=== PATIENT | male | born 1965 | race Caucasian/White ===

== ENCOUNTER 2024-09-13 12:30 | Emergency (ER) | payer BC, SELFPAY ==
[2024-09-13 12:33] VITALS: BP 173/78; PULSE 65; RESP 19; TEMP 37.4; O2SAT 98; BMI 30.2
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
--- NOTE | 2024-09-13 13:21 | PC.NURSE ---
rounded on pt, no needs at this time. call light within reach
--- OUTSIDE RECORDS SUMMARY | 2024-09-13 13:33 | XMS_ITS | Data Portability ---
Author Organization [facility] Address [address] [place] [address] Care Team Providers Care Heel Trimmer Name Role Phone JASMINA DOS SANTOS Primary Care Provider [phone] MATEUSZ PITTMAN Consumer Insights Specialist DEX DUARTE Education Sales Consultant Assessment Encounter Date Assessment Date Assessment LastModified by Organization Details LastModified Time 04/09/2023 04/09/2023 Mr. Zimmerman is a very pleasant, 57 y.o. patient who has a history of HTN, Hyperlipidemia, chews tobacco, and has Family Hx of prostate cancer is being seen today at the request of Dr. Jasmina Dos Santos ( Internal Medicine) for an evaluation of HTN. Symptomatically, the patient reports elevated BP per home BP cuff. BPs have been 160-190s/80s. Recently, he had experienced cold and taken Nyquil & Dayquil. The patient denies chest pain, SOA, RAMIREZ, PND, orthopnea, LE edema, palpitations, near syncope, and syncope. Overall health is reported as stable. Recently, he has RTC: 4-6 weeks for BP review & to discuss study results CV Study: Echocardiogram Call in with BP results & BP cuff validity (when known) Not available 04/10/2023 18:29:08 06/03/2023 06/03/2023 Mr. Zimmerman is a very pleasant, 58 y.o. patient who has a history of HTN, Hyperlipidemia, chews tobacco, and has Family Hx of prostate cancer who was last seen on 04/09/23 at the request of Dr. Jasmina Dos Santos ( Internal Medicine) for an evaluation of HTN. To review: Symptomatically, the patient reported elevated BP per home BP cuff. BPs have been 160-190s/80s. Recently, he had experienced cold and taken Nyquil & Dayquil. Since being off the OTC meds., his BP at home has been well controlled. The patient denied chest pain, SOA, RAMIREZ, PND, orthopnea, LE edema, palpitations, near syncope, and syncope. Overall health is reported as stable. Patient returns to the clinic today for a scheduled follow-up visit. RTC: FREDY Not available 06/04/2023 08:34:39 01/25/2024 01/25/2024 advised he is du e for labs, he agreed to get labs today and I recommend a 6 motnh recheck of chronic conditions sunshine Not available 01/25/2024 19:18:28 Plan of Treatment Reminders Order Date Submit Date Provider Last Modified By Organization Details Last Modified Time Details Appointments PHYSICAL EXAM 2024 08:00A M JASMINA DOS SANTOS MD Not available Not available Not available FOLLOW UP DAK 2024 08:10A M DEX DUARTE MD Not available Not available Not available Lab lipid panel, serum 2023 [facility], [address] [place] [address], [id number], 01/25/2024 17:38:33 CMP, serum or plasma 2023 [facility], [address] [place] [address], [id number], 01/25/2024 17:38:35 PSA, total, serum or plasma 2023 [facility], [address] [place] [address], [id number], 01/25/2024 17:41:02 CBC w/ auto diff 2023 [facility], [address] [place] [address], [id number], 01/25/2024 17:52:53 glycohemo globin, total, blood 2023 024 [facility], [address] [place] [address], [address], 01/25/2024 17:18:57 TSH, serum, reflex free T4 2023 024 [facility], [address] [place] [address], [id number], 01/25/2024 17:41:00 Referral None recorded. Procedures None recorded. Surgeries None recorded. Imaging None recorded. Medication Orders atorvasta tin 10 mg tablet 2023 024 [facility][id number], [address] [place], [place], [id number], 01/25/2024 19:15:47 amlodipin e 5 mg tablet 2023 024 [facility] #[id number], [address] [place], [place], [id number], 01/25/2024 19:14:06 atorvasta tin 10 mg tablet 2023 024 [facility] #[id number], [address] [place], [place], [id number], 03/27/2023 11:20:06 amlodipin e 5 mg tablet [address] [facility][id number], [address] [place], [place], [id number], 03/27/2023 11:34:19 Patient TargetsNo targets recorded. Patient Instructions Encounter Date Encounter Id Patient Instructions Last Modified By Organization Details Last Modified Time 04/09/2023 [id number] Quitting Tobacco : Care Instructions Not available 04/10/2023 18:29:09 body mass index: care instructions Not available 04/10/2023 18:29:09 high blood pressure: care instructions Not available 04/10/2023 18:29:09 06/03/2023 [id number] Quitting Tobacco : Care Instructions Not available 06/03/2023 15:02:22 body mass index: care instructions Not available 06/03/2023 15:02:23 high blood pressure: care instructions Not available 06/03/2023 15:02:22 01/25/2024 [id number] Body Mass Index: Care Instructions-LUIS E gonsalez Not available 01/25/2024 15:46:48 Reason for Referral None Reported. Results Created Date Observation Date Name Description Value Unit Range Abnormal Flag Note LastModifiedBy Organization Detail LastModifiedTime 01/25/20 24 01/25/2024 GLYCO HEMOG LOBIN A1C glyco HGB A1C 5.3 % 0.0-5. 6 normal Not Available [facility] [address] [place] [address], [id number], 01/25/2024 17:18:57 01/25/20 24 01/25/2024 GLYCO HEMOG LOBIN A1C estimated avg. glucose 105 mg/dL _(meghan c) normal A1c value s betwe en 5.7% to 6.4% indic ate predi abete s. Resul ts 6.5% or great er is diagn ostic of diabe stuart. Ameri can Diabe stuart [facility] iatio n (diab etes. org) Not Available [facility] [address] [place], [address], 01/25/2024 17:18:57 01/25/2001/25/2024 LIPID PROFI LE HDL cholesterol 66 mg/dL 40-242 normal Not Available [facility] [address] [place], [address], 01/25/2024 17:38:33 01/25/20 24 01/25/2024 LIPID PROFI LE triglyceride s 207 mg/dL 0-149 high TRIGL YCERI DE RANGE S ARIELA L: < 150 BORDE RLINE HIGH: 150 - 199 HIGH: 200 - 499 VERY HIGH: > OR = 500 Not Available [facility] [address] [place] [address], [address], 01/25/2024 17:38:33 01/25/20 24 01/25/2024 LIPID PROFI LE cholesterol 220 mg/dL 0-199 high DIAN STERO L (TOTA L) RANGE S ISATU ABLE: < 200 BORDE RLINE : 200 - 239 HIGHE R RISK: > 239 Not Available [facility] [address] [place] [address], [address], 01/25/2024 17:38:33 01/25/20 24 01/25/2024 LIPID PROFI LE LDL cholesterol 113 mg/dL _(meghan c) 0-99 high LDL DIAN STERO L RANGE S OPTIM AL: < 100 NEAR/ ABOVE OPTIM AL: 100 - 129 BORDE RLINE HIGH: 130 - 159 HIGH: 160 - 189 VERY HIGH: > OR = 190 Not Available [facility] [address] [place] [address], [address], 01/25/2024 17:38:33 01/25/20 24 01/25/2024 COMP. METAB OLIC PANEL glucose 87 mg/dL 74-100 normal Not Available [facility] [address] [place] [address], [address], 01/25/2024 17:38:35 01/25/20 24 01/25/2024 COMP. METAB OLIC PANEL blood urea nitrogen 13 mg/dL 6-20 normal Not Available [facility] [address] [place] [address], [address], 01/25/2024 17:38:35 01/25/20 24 01/25/2024 COMP. METAB OLIC PANEL creatinine 1.12 mg/dL 0.70-1 .28 normal Not Available [facility] [address] [place] [address], [address], 01/25/2024 17:38:35 01/25/20 24 01/25/2024 COMP. METAB OLIC PANEL BUN/creatini ne ratio 12 (calc ) 10-20 normal Not Available [facility] [address] [place] [address], [address], 01/25/2024 17:38:35 01/25/20 24 01/25/2024 COMP. METAB OLIC PANEL sodium 142 mmol/ L 136-14 5 normal Not Available [facility] [address] [place] [address], [address], 01/25/2024 17:38:35 01/25/20 24 01/25/2024 COMP. METAB OLIC PANEL potassium 4.0 mmol/ L 3.4-5. 0 normal Not Available [facility] [address] [place] [address], [address], 01/25/2024 17:38:35 01/25/20 24 01/25/2024 COMP. METAB OLIC PANEL chloride 102 mmol/ L 98-107 normal Not Available [facility] [address] [place] [address], [address], 01/25/2024 17:38:35 01/25/20 24 01/25/2024 COMP. METAB OLIC PANEL carbon dioxide 25 mmol/ L 22-31 normal Not Available [facility] [address] [place] [address], [address], 01/25/2024 17:38:35 01/25/20 24 01/25/2024 COMP. METAB OLIC PANEL anion gap 15 (calc ) 7-25 normal Not Available [facility] [address] [place] [address], [address], 01/25/2024 17:38:35 01/25/20 24 01/25/2024 COMP. METAB OLIC PANEL calcium 9.6 mg/dL 8.6-10 .2 normal Not Available [facility] [address] [place] [address], [address], 01/25/2024 17:38:35 01/25/20 24 01/25/2024 COMP. METAB OLIC PANEL total protein 7.7 g/dL 6.4-8. 3 normal Not Available [facility] [address] [place] [address], [address], 01/25/2024 17:38:35 01/25/20 24 01/25/2024 COMP. METAB OLIC PANEL albumin 4.7 g/dL 3.5-5. 2 normal Not Available [facility] [address] [place] [address], [address], 01/25/2024 17:38:35 01/25/20 24 01/25/2024 COMP. METAB OLIC PANEL globulin 3.0 1.5-4. 5 normal Not Available [facility] [address] [place] [address], [address], 01/25/2024 17:38:35 01/25/20 24 01/25/2024 COMP. METAB OLIC PANEL albumin/glob ulin ratio 1.6 (calc ) 1.1-2. 5 normal Not Available [facility] [address] [place] [address], [address], 01/25/2024 17:38:35 01/25/20 24 01/25/2024 COMP. METAB OLIC PANEL bilirubin, total 0.6 mg/dL 0.1-1. 2 normal Not Available [facility] [address] [place] [address], [address], 01/25/2024 17:38:35 01/25/20 24 01/25/2024 COMP. METAB OLIC PANEL alkaline phosphatase 78 U/L 40-129 normal Not Available [facility] [address] [place] [address], [address], 01/25/2024 17:38:35 01/25/20 24 01/25/2024 COMP. METAB OLIC PANEL AST 37 U/L 0-40 normal Not Available [facility] [address] [place] [address], [address], 01/25/2024 17:38:35 01/25/20 24 01/25/2024 COMP. METAB OLIC PANEL ALT 47 U/L 0-41 high Not Available [facility] [address] [place], [address], 01/25/2024 17:38:35 01/25/20 24 01/25/2024 COMP. METAB OLIC PANEL GFR 77 >= 60 normal NOT E New calcu latio n for GFR (CKD- EPI 2020) is formu lated witho ut race adjus tment facto rs at the recom menda tion of the [facility] [employer] ation and [facility] green[facility] Socie ty of Nephr ology . This calcu latio n has not been valid ated in pregn ant women . For pedia tric patie nts refer to https ://gray allen.o rg/pr ofess ional s/KDO QI/gf r_cal culat orPed Not Available [facility] [address] [place], [address], 01/25/2024 17:38:35 01/25/20 24 01/25/2024 TSH WITH REFLE X FT4 TSH with reflex FT4 4.300 u[IU] /mL 0.270- 4.200 high Not Available [facility] [address] [place], [address], 01/25/2024 17:41:00 01/25/20 24 01/25/2024 PROST ATE SPECI FIC AG prostate specific Ag 1.420 NG/mL 0.000- 3.100 normal This test was perfo rmed using Kassie e801 Elect kassie milum inesc ent metho d. The test metho d is based on WHO-s tanda rdize d calib ratio n. Value s obtai ibis from diffe rent assay metho ds or manuf actur ers may not be calvin rable . Not Available [facility] [address] [place], [address], 01/25/2024 17:41:02 01/25/2001/25/2024 COMPL ETE BLOOD COUNT white blood cells 7.4 10*3/ uL 3.8-10 .8 normal Not Available [facility] [address] [place] [address], [address], 01/25/2024 17:52:53 01/25/2001/25/2024 COMPL ETE BLOOD COUNT red blood cells 4.71 10*6/ uL 4.20-5 .80 normal Not Available [facility] [address] [place] [address], [address], 01/25/2024 17:52:53 01/25/2001/25/2024 COMPL ETE BLOOD COUNT hemoglobin 15.5 g/dL 14.0-1 8.0 normal Not Available [facility] [address] [place] [address], [address], 01/25/2024 17:52:53 01/25/2001/25/2024 COMPL ETE BLOOD COUNT hematocrit 43.7 % 40.0-5 2.0 normal Not Available [facility] [address] [place] [address], [address], 01/25/2024 17:52:53 01/25/20 24 01/25/2024 COMPL ETE BLOOD COUNT MCV 93 fL 80-100 normal Not Available [facility] [address] [place] [address], [address], 01/25/2024 17:52:53 01/25/20 24 01/25/2024 COMPL ETE BLOOD COUNT MCH 33 pg 26-35 normal Not Available [facility] [address] [place] [address], [address], 01/25/2024 17:52:53 01/25/20 24 01/25/2024 COMPL ETE BLOOD COUNT MCHC 35 g/dL 32-36 normal Not Available [facility] [address] [place] [address], [address], 01/25/2024 17:52:53 01/25/20 24 01/25/2024 COMPL ETE BLOOD COUNT RDW 12.5 % 11.0-1 5.0 normal Not Available [facility] [address] [place] [address], [address], 01/25/2024 17:52:53 01/25/20 24 01/25/2024 COMPL ETE BLOOD COUNT MPV 9.2 fL 6.2-10 .5 normal Not Available [facility] [address] [place] [address], [address], 01/25/2024 17:52:53 01/25/2001/25/2024 COMPL ETE BLOOD COUNT platelet count 231 10*3/ uL 150-40 0 normal Not Available [facility] [address] [place] [address], [address], 01/25/2024 17:52:53 01/25/20 24 01/25/2024 COMPL ETE BLOOD COUNT neutrophil,a bsolute 4.2 10*3/ uL 1.6-8. 4 normal Not Available [facility] [address] [place] [address], [address], 01/25/2024 17:52:53 01/25/20 24 01/25/2024 COMPL ETE BLOOD COUNT lymphocyte,a bsolute 2.3 10*3/ uL 0.4-5. 1 normal Not Available [facility] [address] [place] [address], [address], 01/25/2024 17:52:53 01/25/20 24 01/25/2024 COMPL ETE BLOOD COUNT monocyte,abs olute 0.6 10*3/ uL 0.0-1. 2 normal Not Available [facility] [address] [place] [address], [address], 01/25/2024 17:52:53 01/25/20 24 01/25/2024 COMPL ETE BLOOD COUNT eosinophil,a bsolute 0.1 10*3/ uL 0.0-0. 8 normal Not Available [facility] [address] [place] [address], [address], 01/25/2024 17:52:53 01/25/20 24 01/25/2024 COMPL ETE BLOOD COUNT basophil,abs olute 0.1 10*3/ uL 0.0-0. 3 normal Not Available [facility] [address] [place] [address], [address], 01/25/2024 17:52:53 01/25/20 24 01/25/2024 COMPL ETE BLOOD COUNT % neutrophils 57.3 % 42.0-7 8.0 normal Not Available [facility] [address] [place] [address], [address], 01/25/2024 17:52:53 01/25/20 24 01/25/2024 COMPL ETE BLOOD COUNT % lymphocytes 31.5 % 11.0-4 7.0 normal Not Available [facility] [address] [place] [address], [address], 01/25/2024 17:52:53 01/25/20 24 01/25/2024 COMPL ETE BLOOD COUNT % monocytes 8.5 % 0.0-11 .0 normal Not Available [facility] [address] [place] [address], [address], 01/25/2024 17:52:53 01/25/20 24 01/25/2024 COMPL ETE BLOOD COUNT % eosinophils 1.7 % 0.0-7. 0 normal Not Available [facility] [address] [place] [address], [address], 01/25/2024 17:52:53 01/25/20 24 01/25/2024 COMPL ETE BLOOD COUNT % basophils 1.0 % 0.0-3. 0 normal Not Available [facility] [address] [place] [address], [address], 01/25/2024 17:52:53 01/25/20 24 01/25/2024 COMPL ETE BLOOD COUNT nucleated red cells 0.0 % 0.0-0. 9 normal Not Available [facility] [address] [place] [address], [address], 01/25/2024 17:52:53 01/25/20 24 01/25/2024 COMPL ETE BLOOD COUNT nucleated RBCs, absolute 0.00 10*3/ uL not estab. normal Not Available [facility] [address] [place] [address], [address], 01/25/2024 17:52:53 01/25/20 24 01/25/2024 T4,FR EE T4,free 0.99 NG/dL 0.93-1 .70 normal Not Available [facility] [address] [place] [address], [address], 01/25/2024 18:09:19 04/27/19 24 04/23/2023 US, doppl er echoc ardio gram, w/ color flow No observ ation record ed. [address] [facility] Cardiology [address], [place], [address], 05/01/2023 08:51:31 Result Notes None recorded. Problems Name Problem SNOMED Code Status Onset Date Resolution Date Notes Provider Name and Address Organization Details Recorded Time Essential hypertension 36144342 Active 2019 JASMINA DOS SANTOS MD [address] [place] [address], [address], [facility] 0 08:12:04 Mixed hyperlipidemia 479178581 Active 2019 JASMINA DOS SANTOS MD [address] [place] [address], [address], [facility] 0 08:12:05 Hyperglycemia 63113410 Active 2019 JASMINA DOS SANTOS MD [address] [place] [address], [address], [facility] 0 08:12:06 Family history of malignant neoplasm of prostate 652184036 Active 2021 JASMINA DOS SANTOS MD [address] [place] [address], [address], [facility] 2 07:55:52 Problem Notes Documentation Provider Name and Address Organization Details Recorded Time Consumer Insights Specialist Consult Note : [facility] [address] [facility] [address] [place], [facility] [id number] II, Duy Amaro (id #[id number], : 1965) [facility] [address] [facility] [address] [place] [address] [place] [address] Date: 4RE: Duy Zimmerman II, : 1965, PT ID #[id number] Dos Santos MD, I would like to thank you for referring Duy Zimmerman II to our practice for consultation and evaluation ofTransition of Care Encounter SCIENCE TECHNICIAN hypertension Ref: Dr Dos Santos, on 04/09/2023. I have enclosed a copy of the office evaluation for your records. Once again, thank you for allowing me to participate in the care of this patient. Sincerely, Electronically Signed by: MATEUSZ PITTMAN MD Encounter Reason/DateTransition of Care Encounter SCIENCE TECHNICIAN hypertension Ref: Dr Dos Santos 04/09/2023 - 01:30PM - [facility]OLOGY [facility] History of Present IllnessMr. Zimmerman is a very pleasant, 57 y.o. patient who has a history of HTN, Hyperlipidemia, chews tobacco, and has Family Hx of prostate cancer is being seen today at the request of Dr. Jasmina Dos Santos ( Internal Medicine) for an evaluation of HTN. Symptomatically, the patient reports elevated BP per home BP cuff. BPs have been 160-190s/80s. Recently, he had experienced cold and taken Nyquil & Dayquil. The patient denies chest pain, SOA, RAMIREZ, PND, orthopnea, LE edema, palpitations, near syncope, and syncope. Overall health is reported as stable. Recently, he has made several lifestyle changes such as improved diet and increased frequency of exercise. Recent cardiovascular testing: none seen.Review of SystemsAdditionally reports:A 14 point Review of Systems was completed. Cardiac ROS as noted in HPI; Non Cardiac: Negative for recent seizure or GI/ bleeding. Other systems reviewed, not pertinent to current illness or negative. ROS as noted in the HPIPhysical ExamGen: Middle-aged male, no distress, ambulatory, A&Ox3, with family memberHeent: Pupils equal, round and reactive to light; EOMI; MMMNECK: Supple. No carotid bruits noted. Neck veins are flat.CHEST: Clear to auscultation with good excursion; no subclavian bruits noted;CARDIOVASCULAR: Regular rate and rhythm. No murmurs, rubs, or gallops are present.ABDOMEN: Soft. Non-tender. No abdominal bruits heard.MUSCULOSKELETAL: Grossly unremarkable.NEUROLOGIC: Grossly intact, no focal deficits;VASCULAR: No bruits in the neck, abdomen, or subclavian areas noted; palpable bilateral radial pulses;EXTREMITIES: No edema appreciated in bilateral lower extremitiesProcedure DocumentationEK lead electrocardiogram testing performed. See scanned copy for results. EKG today - sinus bradycardia, rate=58, normal axis, QTc= 390 ms, RBBB.Assessment/PlanMrArjun Zimmerman is a very pleasant, 57 y.o. patient who has a history of HTN, Hyperlipidemia, chews tobacco, and has Family Hx of prostate cancer is being seen today at the request of Dr. Jasmina Dos Santos ( Internal Medicine) for an evaluation of HTN. Symptomatically, the patient reports elevated BP per home BP cuff. BPs have been 160-190s/80s. Recently, he had experienced cold and taken Nyquil & Dayquil. The patient denies chest pain, SOA, RAMIREZ, PND, orthopnea, LE edema, palpitations, near syncope, and syncope. Overall health is reported as stable. Recently, he has RTC: 4-6 weeks for BP review & to discuss study resultsCV Study: EchocardiogramCall in with BP results & BP cuff validity (when known) 1. Essential hypertension-BP today was = 140/84 mmHg; continue with current med. - Amlodipine 5 mg po qd.He reports several recent elevated blood pressure readings in the 160s-190s mmHg with a recently purchased blood pressure cuff. I wonder if his home blood pressure cuff is accurate. I have asked him to check this against another blood pressure cuff he has at home as well as with manual cuff at the [facility] department (his work location). EKG (04/09/23) - sinus bradycardia, rate=58, normal axis, QTc= 390 ms, RBBB. Patient is recommended to check BPs at home periodically & bring BP log to next visit. A low sodium (< 2000 mg/day) diet is also recommended.I10: Essential (primary) hypertension HIGH BLOOD PRESSURE: CARE INSTRUCTIONS 2. Right bundle branch block- Right -EKG (04/09/23) - sinus bradycardia, rate=58, normal axis, QTc= 390 ms, RBBB.We discussed this today. Recommendation: [id number]: Unspecified right bundle-branch block 3. Electrocardiogram abnormal-EKG (04/09/23) - sinus bradycardia, rate=58, normal axis, QTc= 390 ms, RBBB.We discussed this today. Recommendation: EtdffcobesuosfK31.31: Abnormal electrocardiogram [ECG] [EKG] 4. Tobacco dependence syndrome-chewing tobacco cessation was recommended due to the multiple potential adverse health effects of chronic tobacco ukcgpV56.200: Nicotine dependence, unspecified, uncomplicated QUITTING TOBACCO: CARE INSTRUCTIONS 5. Obesity-patient's BMI today was = 30.0 ; recommend weight loss for beneficial effects on health.E66.9: Obesity, unspecified BODY MASS INDEX: CARE INSTRUCTIONS Return to Office MATEUSZ PITTMAN MD for RECHECK at CARDIOLOGY [facility] on 06/03/2023 at 03:15 PM DEX DUARTE MD for FOLLOW UP DAK at [facility] on 09/15/2023 at 07:30 AM to see MATEUSZ GUZMAN MD at [facility] on or around 09/09/2027 JASMINA DOS SANTOS MD [address] [place] [phone] 04/13/2023 09:43:45 Cardiology Note : [address] [address]OVDLUSDuy ZIMMERMAN II (id #[id number], : 1965) [address] [address] Encounter Summary - Progress Note Date Printed: 06/04/2023 Documents sent via fax will include the followingmessage: This fax may contain sensitive and confidential personal health information that is being sent for the sole use of the intended recipient. Unintended recipients are directed to securely destroy any materials received. You are hereby notified that the unauthorized disclosure or other unlawful use of this fax or any personal health information is prohibited. To the extent patient information contained in this fax is subject to 42 CFR Part 2, this regulation prohibits unauthorized disclosure of these records. If you received this fax in error, please visit [email or web address] to notify the sender and confirm that the information will be destroyed. If you do not have internet access, please call to notify the sender and confirm that the information will be destroyed. Thank you for your attention and cooperation. [ID:[id number]] Patient Duy Zimmerman (58yo, M) #[id number] 1965 Patient Demographics: Address [address] [place] [id number] Encounter Notes: Encounter Reason/Date recheck 4-6 wks/echo prior 06/03/2023 - 03:15PM - CARDIOLOGY SB History of Present IllnessMr. Armando is a very pleasant, 58 y.o. patient who has a history of HTN, Hyperlipidemia, chews tobacco, and has Family Hx of prostate cancer who was last seen on 04/09/23 at the request of Dr. Jasmina Dos Santos ( Internal Medicine) for an evaluation of HTN. To review:Symptomatically, the patient reported elevated BP per home BP cuff. BPs have been 160-190s/80s. Recently, he had experienced cold and taken Nyquil & Dayquil. Since being off the OTC meds., his BP at home has been well controlled. The patient denied chest pain, SOA, RAMIREZ, PND, orthopnea, LE edema, palpitations, near syncope, and syncope. Overall health is reported as stable. Patient returns to the clinic today for a scheduled follow-up visit. Review of SystemsAdditionally reports:A 14 point Review of Systems was completed. Cardiac ROS as noted in HPI; Non Cardiac: Negative for recent seizure or GI/ bleeding. Other systems reviewed, not pertinent to current illness or negative. ROS as noted in the HPI Vitals Ht: 5 ft 10 in Stated Wt: 207 lbs 9.6 oz With clothes BMI: 29.8 BP: 142/74 sitting L arm Pulse: 82 bpm O2Sat: 98% Room Air at Rest Results/InterpretationsNone recorded Physical ExamGen: Middle-aged male, no distress, ambulatory, A&Ox3 No exam was performed today. We spent the entire visit discussing the results of recent CV test results. Procedure DocumentationNone recorded Assessment and PlanMrArjun Zimmerman is a very pleasant, 58 y.o. patient who has a history of HTN, Hyperlipidemia, chews tobacco, and has Family Hx of prostate cancer who was last seen on 04/09/23 at the request of Dr. Jasmina Dos Santos ( Internal Medicine) for an evaluation of HTN. To review:Symptomatically, the patient reported elevated BP per home BP cuff. BPs have been 160-190s/80s. Recently, he had experienced cold and taken Nyquil & Dayquil. Since being off the OTC meds., his BP at home has been well controlled. The patient denied chest pain, SOA, RAMIREZ, PND, orthopnea, LE edema, palpitations, near syncope, and syncope. Overall health is reported as stable. Patient returns to the clinic today for a scheduled follow-up visit. RTC: PRN 1. Essential hypertension-BP today was = 142/74mmHg; continue with current med. - Amlodipine 5 mg po qd.He reports that his BP has been well controlled recently. I have asked him to check his home BP cuff against another blood pressure cuff he has at home as well as with manual cuff at the [facility] department (his work location). Patient is recommended to check BPs at home periodically & bring BP log to next visit. A low sodium (< 2000 mg/day) diet is also recommended.I10: Essential (primary) hypertension HIGH BLOOD PRESSURE: CARE INSTRUCTIONS 2. Right bundle branch block-EKG (04/09/23) - sinus bradycardia, rate=58, normal axis, QTc= 390 ms, RBBB.We discussed this today. Echocardiogram (04/23/23):LVEF=60-65%, mild ventricular septal hypertrophy, mild bi-atrial enlargement.No valvular issues, Aorta and IVC have normal measurements.I45.10: Unspecified right bundle-branch block 3. Obesity-patient's BMI today was = 29.8; recommend weight loss for beneficial effects on health.E66.9: Obesity, unspecified BODY MASS INDEX: CARE INSTRUCTIONS 4. Nicotine dependence-smoking cessation was recommended due to the multiple potential adverse health effects of chronic tobacco mznqvB73.200: Nicotine dependence, unspecified, uncomplicated QUITTING TOBACCO: CARE INSTRUCTIONS Return to Office DEX DUARTE MD for FOLLOW UP DAK at [facility] on 09/15/2023 at 07:30 AM to see MATEUSZ GUZMAN MD at [facility] on or around 09/09/2027 Patient Medical History: Allergies List Reviewed Allergies NKDA none Medications Reviewed Medications NameDate Source amLODIPine 5 mg tabletTake 1 tablet(s) every day by oral route.03/27/23 prescribed JASMINA DOS SANTOS MD atorvastatin 10 mg tabletTAKE 1 TABLET BY MOUTH EVERY DAY03/27/23 filled surescripts Family HistoryReviewed Family History Father - Family history of cancer - dad-hip unknown type- - Malignant tumor of prostate Mother - Heart disease ( age: 81) Past Medical History Acid Reflux (GERD) N Anxiety Disorder N Asthma N Atrial Fibrillation N COPD N Cancer N Diabetes N GERD/Reflux N Heart Arrhythmia N Heart Attack (CA) N High CholesterolY Pacemaker N Shortness of Breath N Sleep Apnea N Stroke N Thyroid Disease N Thyroid Problems N Vaccine HistoryReviewed Vaccines Vaccine Type Date Amt. Route Site FORMERLY NAMED [facility] Lot # Mfr. Exp. Date VIS VIS Given [employer] COVID-19 COVID-19, mRNA, LNP-S, PF, 100 mcg/0.5 mL dose (Moderna) 04/04/20 0.5 mL Intramuscular [id number] [employer] 09/29/20 COVID-19, mRNA, LNP-S, PF, 100 mcg/0.5 mL dose (Moderna) 03/07/20 0.5 mL Intramuscular [id number] Modern[employer] 09/04/20 Diphtheria, Tetanus, Pertussis Tdap 06/24/18 0.5 mL Intramuscular [id number] Sanofi P[employer] 05/11/20 Influenza influenza, injectable, quadrivalent, preservative free 02/06/22 0.5 mL Intramuscular [id number] Sanofi P[employer] 08/29/22 influenza, injectable, quadrivalent, preservative free 12/03/20 0.5 mL Intramuscular [id number] Sanofi Pasteur 08/29/21 influenza, injectable, quadrivalent, preservative free 11/28/19 0.5 mL Intramuscular [id number] [employer] 08/19/20 Tetanus tetanus toxoid 03/02/18 Electronically Signed by: MATEUSZ PITTMAN MD Ernestina Saeed [facility] 06/04/2023 10:28:17 Dermatology Note : [address] [address]GGVYHS, Duy Amaro II (id #[id number], : 1965) [facility] [address] [place] [address] Date: 4RE: Duy Zimmerman, : 1965, PT ID #[id number] Dos Santos MD, I would like to thank you for referring Duy Zimmerman to our practice for consultation and evaluation. I have enclosed a copy of the office evaluation for your records. Sincerely, Electronically Signed by: DEX DUARTE MDEncounter Reason/Date Full Skin Check 09/15/2023 - 07:30AM - [facility] History of Present Illnessannual(no skin cx hx)Review of SystemsROS as noted in the HPIPhysical ExamConstitutional: Patient is in no apparent distress and appears in good general health Neurological: Alert and oriented to person, place, and time Psychiatric: Pleasant and cooperative Total body skin exam was performed: The areas examined include: scalp, hair, face, eyelids, lips, ears, neck, chest, breasts, abdomen, back, right upper extremity, left upper extremity, buttocks, right lower extremity, left lower extremity, digits and nails. Any detailed findings documented below: Evenly pigmented brown macules Stuck-on brown papules and plaques Pollock red papules Gtz maculesProcedure DocumentationNone recordedAssessment/Plan1. Multiple benign melanocytic nevi- Self-Limited/Minor -- Benign lesions seen on exam today- SPF 30 or higher broad-spectrum sunscreen recommended with re-application every 2 hours- Discussed sun protection measures, including wide-brimmed hat, sun-protective clothing, and avoidance of sun during peak hours of 10am-4pm- Instructed to monitor for changes and to call us for appointment with any changing or worrisome ylppygkQ94.5: Melanocytic nevi of trunk 2. Seborrheic keratosis- Self-Limited/Minor - Benign overgrowths of skin JkvddozfmhY79.1: Other seborrheic keratosis 3. Senile angioma- Self-Limited/Minor - Benign blood vessel growths WhpvhlqjyjF17.1: Nevus, non-neoplastic 4. Solar lentigo- Self-Limited/Minor - Benign brown spots Sun-jhimdrsG04.4: Other melanin hyperpigmentation Return to Office DEX DUARTE MD for FOLLOW UP DAK at [facility] on 09/15/2024 at 08:10 AM to see MATEUSZ GUZMAN MD at [facility] on or around 09/09/2027 [facility] 10:30:08 Procedures Surgical History Date Name Laterality Status Provider Name and Address Organization Details Recorded Time 04/09/19 24 EKG completed MATEUSZ PITTMAN MD [address] [place] [address], [id number], [facility] 04/09/2023 13:50:24 09/09/19 23 colonoscopy completed Jewell Weston [facility] 09/23/2022 07:32:22 Tonsillectomy completed Soraida Pleitez [facility] 09/21/2018 12:07:24 Imaging Results None recorded. Procedure Notes None recorded. Medical Equipment None Reported. Allergies No known drug allergies Medications Name Sig Start Date Stop Date Status Note LastModified by Organization Details LastModified Time losartan 50 mg tablet TAKE 1 TABLET BY MOUTH EVERY DAY FOR 60 DAYS 02/09 completed Not Available Not Available Not Available atorvastati n 10 mg tablet TAKE 1 TABLET BY MOUTH EVERY DAY 2024 active Not Available Not Available Not Avai lable amlodipine 5 mg tablet TAKE 1 TABLET BY MOUTH EVERY DAY 2024 active Not Available Not Available Not Avai lable cephalexin 500 mg capsule 09/21 completed Not Available Not Available Not Available neomycin-po lymyxin-dex ameth 3.5 mg/mL-10,00 0 unit/mL-0.1 % eye drops INSTILL 1 DROP IN RIGHT EYE FOUR TIMES DAILY X 7 DAYS 09/23 completed Not Available Not Available Not Available losartan 25 mg tablet TAKE 1 TABLET BY MOUTH EVERY DAY active Not Available Not Available No t Available ibuprofen 200 mg tablet Take 1 tablet every 6 hours by oral route as needed. 11/14 completed Not Available Not Available Not Available sodium,pota ssium,mag sulfates 17.5 gram-3.13 gram-1.6 gram oral soln TAKE DIRECTED 09/23 completed Not Available Not Available Not Available Plenvu 140 gram-9 gram-5.2 gram powder packs DIRECTED 05/05 completed Not Available Not Available Not Available Vitals Date Recorded Body height Body mass index (BMI) Body weight Heart rate Oxygen saturation Oxygen saturation in Arterial blood by Pulse oximetry Systolic And Diastolic Provider Name and Address Organization Details Last Updated DateTime 4 177.8 cm 30.7 kg/m2 13683.7 7 g 93 /min 98 % 98 % 158/80 mm[Hg] Emperatriz Pena [facility] 4 11:00:33 Date Recorded Body height Body mass index (BMI) Body weight Oxygen saturation Oxygen saturation in Arterial blood by Pulse oximetry Heart rate Systolic And Diastolic Provider Name and Address Organization Details Last Updated DateTime 4 177.8 cm 30 kg/m2 24680.8 1 g 97 % 97 % 58 /min 140/84 mm[Hg] Cristiane Rodríguez [facility] 4 13:38:37 Date Recorded Body height Provider Name an d Address Organization Details Last Updated DateTime 06/03/2023 [facility]/2023 14:48:34 Date Recorded Body mass index (BMI) Body weight Heart rate Oxygen saturation Oxygen saturation in Arterial blood by Pulse oximetry Systolic And Diastolic Provider Name and Address Organization Details Last Updated DateTime 4 29.8 kg/m2 01547.7 8 g 82 /min 98 % 98 % 142/74 mm[Hg] Tracie Dawson [facility] 4 15:37:09 Date Recorded Body height Body mass index (BMI) Body weight Heart rate Oxygen saturation Oxygen saturation in Arterial blood by Pulse oximetry Systolic And Diastolic Provider Name and Address Organization Details Last Updated DateTime 4 177.8 cm 30.1 kg/m2 80588.4 g 72 /min 98 % 98 % 134/80 mm[Hg] Adrian Castro [facility] 4 15:13:49 Social History Question Answer Notes LastModified by Organizat ion Details LastModified Time Tobacco Smoking Status Never [facility]oker [facility] 09/21/2018 12:05:14 What Is Your Level Of Caffeine Consumption? Moderate Information not available 09/21/2018 How Much Tobacco Do You Chew? 5+/day Information not available 04/09/2023 Hard Of Hearing Or Deaf In One Or Both Ears? No Information not available 09/21/2018 Legally Blind In One Or Both Eyes? No Information not available 09/21/2018 Live Alone Or With Others? With Others Information not available 09/21/2018 What Was The Date Of Your Most Recent Tobacco Screening? 01/25/2024 Information not available 01/25/2024 How Many Children Do You Have? 1 Information not available 09/21/2018 Seat Belts Used Routinely Yes Information not available 09/21/2018 Smoke Alarm In Home Yes [email or web address] Information not available 11/22/2019 At What Age Did You Start Smoking Tobacco? 18 Information not available 09/21/2018 Are You Passively Exposed To Smoke? No Information not available 09/21/2018 How Much Tobacco Do You Smoke? No Information not available 09/21/2018 Do You Use Sunscreen Routinely? Yes Information not available 09/21/2018 Has Tobacco Cessation Counseling Been Provided? Yes Information not available 04/09/2023 On What Date Was Tobacco Cessation Counseling Provided? 01/25/2024 [email or web address] Answered No To The Tobacco Cessation Counseling Provided Question On 09/21/2018. Information not available 01/25/2024 How Many Years Have You Smoked Tobacco? 30 Chew Only,never Smoked Cigarettes Information not available 09/21/2018 Sex: Unknown Functional Status Question Answer Note LastModified by Organizat ion Details LastModified Time Do you or have you ever used any other forms of tobacco or nicotine? Yes Information not available 04/09/2023 What is your level of alcohol consumption? Moderate Information not available 09/21/2018 Do you or have you ever used smokeless tobacco? 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 Yes Information not available 09/21/2018 What is your occupation? [employer] Information not available 09/21/2018 Do you or have you ever used e-cigarettes or vape? Never used electronic cigarettes Information not available 12/09/2018 What is your exercise level? Occasional Information not available 09/21/2018 Mental Status None recorded. Family History Relationship Description Onset Age of this Age Resolved Age Notes LastModified by Organization Details LastModified Time Father Family history of malignant neoplasm dad-hi p unknow n type- [email or web address] Not available 01/07/2021 14:43:42 Father Malignant neoplasm of prostate [email or web address] Not available 2020 14:42:22 Father Malignant neoplasm of skin [email or web address] Not available 09/14 07:40:29 Mother Heart disease 81 Not available 12:09:48 Medical History Condition Response Atrial Fibrillation N Heart Arrhythmia N COPD N Anxiety Disorder N Acid Reflux (GERD) N Cancer N Stroke N Asthma N GERD/Reflux N Thyroid Disease N Pacemaker N Shortness of Breath N High Cholesterol Y Thyroid Problems N Heart Attack (CA) N Diabetes N Sleep Apnea N Immunizations Vaccine Type Date Status Note Provider Nam e and Address Organization Details Recorded Time tetanus toxoid, unspecified formulation 9 completed Not Available [facility] 04/09/2023 13:05:30 COVID-19, mRNA, LNP-S, PF, 100 mcg/0.5mL dose or 50 mcg/0.25mL dose 1 completed [facility] 09/23/2022 07:30:31 COVID-19, mRNA, LNP-S, PF, 100 mcg/0.5mL dose or 50 mcg/0.25mL dose 1 completed [facility] 09/23/2022 07:30:31 Tdap 9 completed [facility] 09/23/2022 07:30:31 Influenza, split virus, quadrivalent, PF 0 completed Jewell Weston [facility] 09/23/2022 07:30:31 Influenza, split virus, quadrivalent, PF 1 completed Jewell Weston [facility] 09/23/2022 07:30:31 Influenza, split virus, quadrivalent, PF 2 completed Jewell Weston [facility] 09/23/2022 07:30:31 Past Encounters Encounter ID Performer Location Encounter Start Date Encounter Closed Date Diagnosis/Indication Diagnosis SNOMED-CT Code Diagnosis ICD10 Code Diagnosis Note [id number] QM_[place] [address] 06/02/2016 18:57:29 06/02/2016 18:57:29 [id number] JASMINA DOS SANTOS MD INTER[facility]IC[facility] [address] [place] [address] 09/21/2018 11:52:58 09/21/2018 12:41:19 Adult health examination 017237805 Z00.00 colonoscop y-never had will order tdap 2019 Screening for malignant neoplasm of colon 156151103 Z12.11 Elevated blood-pressure reading without diagnosis of hypertension 729343638 R03.0 He asked about info on diet-gave handout on dash diet. f/u labs f/u 6 months-wai e for shelter and diet/exerc ise changes. If still elevated will start meds. [id number] MATEUSZ GUZMAN MD SURGERY SCHEDULE [address] [place] [address] 02/04/2019 08:41:20 02/04/2019 08:44:45 [id number] JASMINA DOS SANTOS MD INTERNAL MEDICINE SB [address] [place], [place] [phone] 05/06/2019 07:43:47 05/06/2019 16:40:30 Adult health examination 439856494 Z00.00 colonoscop y-due 2021 tdap 2019 refuses flu vaccine Essential hypertension 92583033 I10 better but elevated. he declines meds today discussed dietary changes and weight loss Mixed hyperlipidemia 267 640833 E78.2 recheck lipids after 6 months of dietary advice. Hyperglycemia 71131839 R 73.9 check a1c today Obesity 907582632 E66.9 dietary counseling today. 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 most likely discussed shingrix, he may do next time Mixed hyperlipidemia 267 647768 E78.2 his LDl was over 180 and i rx'd lipitor but he didn't take it-reimbursement counselor ed if remains high will need to start it, however w/ some diet changes may be better Hyperglycemia 56796513 R 73.9 check a1c today Obesity 776460801 E66.9 dietary counseling [id number] JASMINA DOS SANTOS MD INTER[facility] [address] [place] [address] 06/28/2020 07:08:29 06/28/2020 08:34:47 Essential hypertension 28522882 I10 better Mixed hyperlipidemia 267 555550 E78.2 his LDl was over 180-starte d 10 mg lipitor recheck Hyperglycemia 44889165 R 73.9 check a1c today Obesity 943133502 E66.9 dietary counseling in past [id number] JASMINA DOS SANTOS MD INTERNAL MEDICINE [facility] [address] [place], [place] [id number] 01/07/2021 14:08:23 01/07/2021 15:57:08 Mixed hyperlipidemia 541575854 E78.2 his LDl was over 180-starte d 10 mg lipitor-la st ldl excellentc ont and check labs next time. Essential hypertension 55585871 I10 better Hyperglycemia 14269158 R 73.9 last a1c normal Obesity 282925195 E66.9 dietary counseling in past Family his tory of malignant neoplasm of prostate 100465768 Z80.42 dad [id number] JASMINA DOS SANTOS MD INTERNAL MEDICINE SB [address] [place] [address] 06/28/2021 07:15:58 06/28/2021 08:27:42 Mixed hyperlipidemia 235947356 E78.2 cont atorvastat in 10 mg Essential hypertension 60030436 I10 excellent Hyperglycemia 35744664 R 73.9 last a1c normal Family his tory of malignant neoplasm of prostate 187724846 Z80.42 dad Adult heal th examination 960953992 Z00.00 colonoscop y-01/2019 repeat 3 years tdap 2019covidx 2flu utdrec shingrix-d eclines today but plans to getnonsmok er-previou s smokeless tobacco Screening for malignant neoplasm of prostate 247345329 Z12.5 [id number] MATEUSZ GUZMAN MD SURGERY SCHEDULE [address] [place], [place] [phone] 09/08/2022 09:19:39 09/08/2022 09:20:52 [id number] JASMINA DOS SANTOS MD INTERNAL MEDICINE [facility] [address] [place] [address] 09/23/2022 07:06:06 09/26/2022 06:50:05 Adult health examination 768489494 Z00.00 colonoscop y-08/2022-5 year f/u tdap 2019covidx 2flu utdrec shingrix-n onsmoker-p revious smokeless tobacco Mixed hyperlipidemia 267 053714 E78.2 cont atorvastat in 10 mg Hyperglycemia 12377933 R 73.9 last a1c normal-rec heck Family his tory of malignant neoplasm of prostate 772190895 Z80.42 dad Screening for malignant neoplasm of prostate 506373959 Z12.5 Essential hypertension 39280967 I10 high today againstart losartan 25 mgf/u 4-6 months w/ ADÁN or methen f/u 6 months after [id number] JASMINA TOLLIVER APRN [facility] [address] [place], [place] [id number] 11/14/2022 07:33:11 11/15/2022 04:59:47 Essential hypertension 70415020 I10 CMP todayNot controlled still, increase to 50mg and follow up 2 mo.He will start to check BP daily at work and write it down, bring to next visit. [id number] JASMINA DOS SANTOS MD INTERNAL MEDICINE SB [address] [place], [place] [id number] 02/09/2023 14:12:30 02/10/2023 04:46:55 Essential hypertension 70689726 I10 losartan 50 mg and BP has increased/ stayed samedc losartanst art amlodipine 5 mgrecheck 6 weekstry to limit [id number] er sleep study [id number] JASMINA DOS SANTOS MD INTERNAL MEDICINE [facility] [address] [place], [place] [phone] 03/27/2023 10:19:21 03/28/2023 04:40:13 Essential hypertension 56773563 I10 losartan 50 mg and BP has increased/ stayed samedc losartan-s tarted amlodipine 5 mghe's made several lifestyle changes and he has lost 3 lbs in a month, so i certainly believe he is working hardi do wonder now if there is some anxiety or white coat htnhe will get BP cuff today and check daily, send me results in 2-3 weeks.cont amlodipine 5mg until then Mixed hyperlipidemia 267 621150 E78.2 cont atorvastat in 10 mg [id number] MATEUSZ PITTMAN MD CARDIOLOG Y [facility]AST [address] [place] [address] ,[address] [place] [address] 04/09/2023 13:04:31 04/11/2023 04:50:14 Essential hypertension 09041495 I10 BP today was = 140/84 mmHg; continue with current med. - Amlodipine 5 mg po qd.He reports several recent elevated blood pressure readings in the 160s-190s mmHg with a recently purchased blood pressure cuff. I wonder if his home blood pressure cuff is accurate. I have asked him to check this against another blood pressure cuff he has at home as well as with manual cuff at the [facility] (his work location). EKG (04/09/23) - sinus bradycardi a, rate=58, normal axis, QTc= 390 ms, RBBB. Patient is recommende d to check BPs at home periodical ly & bring BP log to next visit. A low sodium (< 2000 mg/day) diet is also recommende d. Obesity 706400835 E66.9 patient's BMI today was = 30.0 ; recommend weight loss for beneficial effects on health. Tobacco de pendence syndrome 65235706 F17.200 chewing tobacco cessation was recommende d due to the multiple potential adverse health effects of chronic tobacco abuse Right bund le branch block 70439393 I45.10 EKG (04/09/23) - sinus bradycardi a, rate=58, normal axis, QTc= 390 ms, RBBB.We discussed this today. Recommenda tion: Echocardio gram Electrocar diogram abnormal 630604738 R94.31 EKG (04/09/23) - sinus bradycardi a, rate=58, normal axis, QTc= 390 ms, RBBB.We discussed this today. Recommenda tion: Echocardio gram [id number] MATEUSZ PITTMAN MD CARDIOLOG Y [address] [place] [address] 06/03/2023 14:36:57 06/05/2023 04:15:00 Essential hypertension 57392449 I10 BP today was = 142/74mmHg ; continue with current med. - Amlodipine 5 mg po qd.He reports that his BP has been well controlled recently. I have asked him to check his home BP cuff against another blood pressure cuff he has at home as well as with manual cuff at the [facility] (his work location). Patient is recommende d to check BPs at home periodical ly & bring BP log to next visit. A low sodium (< 2000 mg/day) diet is also recommende d. Obesity [id number] E66.9 patient's BMI today was = 29.8; recommend weight loss for beneficial effects on health. Nicotine dependence [id number] F17.200 smoking cessation was recommende d due to the multiple potential adverse health effects of chronic tobacco abuse Right bund le branch block [id number] I45.10 EKG (04/09/23) - sinus bradycardi a, rate=58, normal axis, QTc= 390 ms, RBBB.We discussed this today. Echocardio gram (04/23/23): LVEF=60-65 %, mild ventricula r septal hypertroph y, mild bi-atrial enlargemen t.No valvular issues, Aorta and IVC have normal measuremen ts. [id number] DEX DUARTE MD [place] [address] [place] [address] 09/15/2023 07:20:51 09/15/2023 07:52:20 Multiple benign melanocytic nevi [id number] D22.5 - Benign lesions seen on exam today- SPF 30 or higher broad-spec trum sunscreen recommende d with re-applica tion every 2 hours- Discussed sun protection measures, including wide-brimm ed hat, sun-protec tive clothing, and avoidance of sun during peak hours of 10am-4pm- Instructed to monitor for changes and to call us for appointmen t with any changing or worrisome lesions Seborrheic keratosis [phone] [id number] L82.1 - Benign overgrowth s of skin - Hereditary Senile angioma [id number] I 78.1 - Benign blood vessel growths - Hereditary Solar lentigo [id number] L 81.4 - Benign brown spots - Sun-induce d [id number] DORA GOODSON APRN [facility] [address] [place] [address] 01/25/2024 14:50:59 01/26/2024 04:21:15 Essential hypertension [id number] I10 he is working on diet lifestyle, eating leaner protein and more vegetables continue amlodipine 5mg dailyadvis ed reduction of salt as well, BP goal <130/80I advised a 6 month recheck Mixed hyperlipidemia [id number] E78.2 cont atorvastat in 10 mg- renewed Body mass index 30+ - obesity [id number] Z68.30 screen Screening for malignant neoplasm of prostate [id number] Z12.5 screen Low back pain [id number] M54.50 some acute back pain due to worsening positionin g with a thick bed his sleeps on, he will seek a firmer mattress for this. Health Concerns Section Related Observation LastModified by Organization Detai ls LastModified Time None Recorded Concern Status LastModified by Organization Details LastModified Time None Recorded Advance Directives Directive None Recorded Payers Insurance Date Sequence Insurance Name Policy Number Policy Goyal Covered Member ID Goyal Member ID Guarantor Name 09/11/2024 1 [employer] [id number] 1 Duy Zimmerman II [id number] Duy Zimmerman Notes Date Note Type Note Provider Name and Address Organization Details Recorded Time 03/27/2023 text/html bp check --htn-losartan 25 mg then increased to 50 mg-bp increased.dc'd and started amlodipine 5mno changehe has cut back nicky 8 from 3 a day to 1.he is working out at gym, he is walkinghe is eating better, more veggies. JASMINA DOS SANTOS MD [address] [place] [address], [phone], [facility] 03/27/2023 11:35:58 04/09/2023 text/html Mr. Zimmerman is a very pleasant, 57 y.o. patient who has a history of HTN, Hyperlipidemia, chews tobacco, and has Family Hx of prostate cancer is being seen today at the request of Dr. Jasmina Dos Santos ( Internal Medicine) for an evaluation of HTN. Symptomatically, the patient reports elevated BP per home BP cuff. BPs have been 160-190s/80s. Recently, he had experienced cold and taken Nyquil & Dayquil. The patient denies chest pain, SOA, RAMIREZ, PND, orthopnea, LE edema, palpitations, near syncope, and syncope. Overall health is reported as stable. Recently, he has made several lifestyle changes such as improved diet and increased frequency of exercise. Recent cardiovascular testing: none seen. MATEUSZ PITTMAN MD [address] [place] [address], [phone], [facility] 04/10/2023 18:30:34 06/03/2023 text/html Mr. Zimmerman is a very pleasant, 58 y.o. patient who has a history of HTN, Hyperlipidemia, chews tobacco, and has Family Hx of prostate cancer who was last seen on 04/09/23 at the request of Dr. Jasmina Dos Santos ( Internal Medicine) for an evaluation of HTN. To review:Symptomatical ly, the patient reported elevated BP per home BP cuff. BPs have been 160-190s/80s. Recently, he had experienced cold and taken Nyquil & Dayquil. Since being off the OTC meds., his BP at home has been well controlled. The patient denied chest pain, SOA, RAMIREZ, PND, orthopnea, LE edema, palpitations, near syncope, and syncope. Overall health is reported as stable. Patient returns to the clinic today for a scheduled follow-up visit. MATEUSZ PITTMAN MD [address] [place], [phone], [facility] 06/04/2023 08:37:11 09/15/2023 text/html annual(no skin c x hx) DEX DUARTE MD [facility] [place], [phone], [facility] 09/15/2023 09:54:44 01/25/2024 text/html recheckhe stoppe d sugar including prior nicky 8, he's staying busy latelytrying to eat fruits and avocadodeer season and making his own sausagenot checking BP at home regularlysome back pain noted recently but is sleeping on a 4 inch thick cover which worsens things for him, no acute pain today DORA GOODSON, [employer] [address] [place], [phone], [facility] 01/25/2024 19:18:43
[2024-09-13 15:56] VITALS: BP 173/78; PULSE 65; RESP 16; TEMP 37.4; O2SAT 98
[2024-09-13 15:58] VITALS: BP 173/78; PULSE 65; RESP 16; TEMP 37.4; O2SAT 98
== END 2024-09-13 15:58 | disposition home or self-care (01) ==
PROVIDERS: Emergency Provider Student in an Organized Health Care Education/Training Program; PCP Internal Medicine
DX: Z04.1 Encounter for examination and observation following transport accident (principal); M79.18 Myalgia, other site; V49.50XA Passenger injured in collision with unspecified motor vehicles in traffic accident, initial encounter; Y92.410 Unspecified street and highway as the place of occurrence of the external cause
CPT/HCPCS: 99283